=== PATIENT | male | born 1950 | race Caucasian/White ===

== ENCOUNTER → 2019-07-09 | Outpatient (CLI) | payer MEDICARE, BC ==
--- NOTE | 2019-07-09 14:10 | REP ---
REASON: Stage III chronic kidney disease. PRIORS: None. Right kidney measures 10 x 5.7 x 4.7 cm and the left kidney measure 10.2 x 4.2 x 5.6 cm. The renal cortical echoes are only slightly increased diffusely bilaterally without evidence of significant renal cortical thinning. There is cortical medullary differentiation which is near optimal and certainly preserved. There are no cystic or solid masses on either side. Imaging of the urinary bladder was obtained solely for the purpose of assessing for Urojet phenomenon, which was not seen on either side. IMPRESSION: Essentially unremarkable bilateral renal ultrasound as described above. Electronically Signed by Thong Pham DO 07/09/2019 02:24 P
--- NOTE | 2019-07-09 14:22 | REP ---
REASON FOR EXAM: History of renal vascular hypertension. After the intravenous administration of 8.7 millicuries of technetium 99m MAG3, a renal flow and scan was obtained. The dynamic scintiscan shows less than optimal washout characteristics of the radiotracer in each kidney. There is some tracer retention in each renal collecting system. Pre- and post-void scintiscan shows a decrease in the amount of retained radiotracer in the collecting system bilaterally, right greater than left. The renal flow shows prompt visualization of the kidneys bilaterally. Analysis of the functional curves shows [id number]-gg-[id number] activity left kidney 2 minutes and right kidney 1 minute. The t-/2 value on the left is 13 minutes and on the right 20 minutes. Count differential density with split functional analysis shows 53.4% of the counts coming from the left kidney and 46.6% of the counts coming from the right kidney. IMPRESSION: There is bilateral altered renal function which is only mild on the left kidney and more moderate appearing involving the right kidney. Electronically Signed by Thong Pham DO 07/09/2019 02:24 P
== END ==
LOC: M RAD 12:21
PROVIDERS: ATTEND Internal Medicine Nephrology
DX: N18.3 Chronic kidney disease, stage 3 (moderate) (principal); I15.0 Renovascular hypertension
CPT/HCPCS: 76775; 78707; A9562

== ENCOUNTER → 2023-08-06 | Outpatient (CLI) | payer MEDICARE ==
[2023-08-06 15:43] LABS: BASO % 0.5 % (0.0-1.0); C REACTIVE PROTEIN QUANTITATIV 0.5 MG/DL (<1.0); EOS # 0.2 10^3/uL (0.0-0.5); EOS % 2.1 % (0.0-3.0); HEMATOCRIT 40.9 % (42.0-52.0); HEMOGLOBIN 13.7 g/dl (13.5-17.5); LYMPH # 1.6 10^3/uL (1.5-5.0); MEAN CORPUSCULAR HEMOGLOBIN 31.2 pg (27.0-33.0); MEAN CORPUSCULAR HGB CONC 33.5 g/dl (32.0-36.5); MEAN CORPUSCULAR VOLUME 93.2 fl (80.0-96.0); MONO # 0.9 10^3/uL (0.0-0.8); MONO % 12.6 % (2.0-8.0); NEUTROPHILS # 4.8 10^3/uL (1.5-8.5); NEUTROPHILS % 63.4 % (36.0-66.0); PLATELET COUNT, AUTOMATED 238 10^3/uL (150-450); RED BLOOD COUNT 4.39 10^6/uL (4.30-6.10); WHITE BLOOD COUNT 7.5 10^3/uL (4.0-10.0)
[2023-08-06 15:45] LABS: ALBUMIN 3.6 G/DL (3.2-5.2); BILIRUBIN,TOTAL 0.3 MG/DL (0.3-1.2); CALCIUM LEVEL 8.6 MG/DL (8.3-10.6); CREATININE FOR GFR 1.29 MG/DL (0.70-1.30); GLOMERULAR FILTRATION RATE 58.1 (>42); POTASSIUM SERUM 4.4 MMOL/L (3.5-5.1)
[2023-08-06 15:48] LABS: THYROID STIMULATING HORMONE 1.496 uIU/ML (0.55-4.78)
[2023-08-10 20:22] LABS: LYME TOTAL ANTIBODY CIA <= 0.90 Index (<=0.90)
== END ==
LOC: M PLALAB 11:41
PROVIDERS: ATTEND Internal Medicine Infectious Disease
DX: R53.83 Other fatigue (principal); R60.0 Localized edema

== ENCOUNTER → 2023-08-28 | Outpatient (REF) | payer MEDICARE | LOC: M SFHCRHEU 08:34 | PROVIDERS: ATTEND Internal Medicine Rheumatology | DX: Z87.39 Personal history of other diseases of the musculoskeletal system and connective tissue (principal) ==

== ENCOUNTER → 2023-10-02 | Outpatient (REF) | payer MEDICARE | LOC: M SFHCRHEU 15:40 | PROVIDERS: ATTEND Internal Medicine Rheumatology | DX: Z87.39 Personal history of other diseases of the musculoskeletal system and connective tissue (principal) ==

== ENCOUNTER → 2024-08-21 | Outpatient (REF) | payer MEDICARE | LOC: M SFHCRHEU 09:27 | PROVIDERS: ATTEND Internal Medicine Rheumatology | DX: Z53.9 Procedure and treatment not carried out, unspecified reason (principal) ==

== ENCOUNTER → 2024-09-01 | Outpatient (CLI) | payer OTHER, MEDICARE | LOC: M CARPUL 14:29 | PROVIDERS: ATTEND Family Medicine | DX: R06.00 Dyspnea, unspecified (principal) ==

== ENCOUNTER → 2024-11-11 | Outpatient (CLI) | payer OTHER, MEDICARE ==
[~2024-11-11] MED LIST: METHACHOLINE KIT (6 VIAL.NEB PREMIX) INH ONE
== END ==
LOC: M CARPUL 11:14
PROVIDERS: ATTEND Physician Assistant
DX: R06.00 Dyspnea, unspecified (principal)
CPT/HCPCS: 94070; 95070; J7674